=== PATIENT | male | born 1935 | race Caucasian/White ===

== ENCOUNTER 2016-05-31 06:04 | Day surgery (SDC) | payer MEDICARE, BC ==
[~2016-05-31] VITALS: Ht 172.7 cm; Wt 79.4 kg
[~2016-05-31 06:04] MED LIST: ASPIRIN81 MG PO; BACTRIM DS1 TAB PO; BENICAR HCT1 TA1 OR; CARB/LEVO1 TA4 PO; HYDROCO/APAP1 T10 OR; IRON18 M1 PO; KEFLEX500 MG OR; LORADAMED10 MG PO; MELATONIN10 M3 PO; MOMETASONE0.12 EX; MULTI COMPLETE PO; NEURONTIN100 MG PO; NEXIUM40 M1 PO; OXYCOD/APAP1 TA4 PO; PYRIDIUM200 MG OR; TRAZODONE50 MG PO
[2016-05-31 07:53] VITALS: BP 113/69
== END 2016-05-31 08:10 | disposition home or self-care (01) ==
LOC: ENDO 06:04 → ORM 09:15
PROVIDERS: ATTEND Surgery
PROC: 0DB68ZX Excision of Stomach, Via Natural or Artificial Opening Endoscopic, Diagnostic (ICD-10-PCS; principal; 2016-05-31)
DX: R13.10 Dysphagia, unspecified (principal); K31.7 Polyp of stomach and duodenum; K29.50 Unspecified chronic gastritis without bleeding; I10 Essential (primary) hypertension; K21.9 Gastro-esophageal reflux disease without esophagitis; E78.5 Hyperlipidemia, unspecified; M19.90 Unspecified osteoarthritis, unspecified site

== ENCOUNTER 2019-01-06 13:50 | Observation (INO) | payer MEDICARE ==
[~2019-01-06] VITALS: Ht 172.7 cm; Wt 79.0 kg
[2019-01-06 14:05] VITALS: BP 111/53
--- NOTE | 2019-01-06 14:10 | NUR ---
PT ARRIVED TO MED/SURG ROOM 271 IN STABLE CONDITION VIA WHEELCHAIR ACCOMPANIED BY SPOUSE AND VOLUNTEER;PT AMBULATED WITH A WEAK GAIT TO STANDING SCALE AND BEDSIDE;WT AND VS OBTAINED BY SEEMA MONTEJO;PT A&O X4, ORIENTED TO ROOM AND CALL LIGHT SYSTEM;PT REPORTS HAVING "FEVER AND CHILLS ALL NIGHT" AND WENT TO SEE PCP WHO SENT HIM DIRECTLY HERE;ASSESSMENT COMPLETED;PT DENIES ANY CURRENT PAIN OR DISCOMFORTS,PAIN SCALE AND REPORTING EDUCATED;RESPIRATIONS EVEN AND UNLABORED ON RA,CLEAR LUNG SOUNDS NOTED;PT REPORTS PRODUCTIVE COUGH "YELLOW AND THICK", COUGH NOT VISUALIZED BY THIS WRITTER;PT EDUCATED ON THE NEED FOR A SPUTUM CULTURE;ABDOMEN SOFT ON PALPATION AND ACTIVE IN ALL 4 QUADRANTS, LAST BM 01/05/19;WEAK PEDAL PULSES;SKIN INTACT;#22G STARTED TO RAC ON 1ST ATTEMPT BY THIS WRITTER AND 1/2 NS STARTED @ 80ML/HR;TELE MONITORING PLACED ON PT;FALL AND ALLERGY BANDS APPPLIED;PT NOTED TO BE FORGETFUL AT TIMES, BED ALARM ACTIVATED;FRESH WATER PROVIDED;PT DENIES ANY ADDITIONAL NEEDS AND IS ENCOURAGED TO CALL FOR ASSISTANCE IF NEEDED;CALL LIGHT IN REACH;WILL CONTINUE TO MONITOR
--- NOTE | 2019-01-06 14:50 | NUR ---
LAB AT BEDSIDE
[2019-01-06 15:00] LABS: HEMATOCRIT 30.7 % (39.0-50.0); HEMOGLOBIN 10.2 g/dl (14.0-18.0); IMMATURE GRANULOCYTES 0.5 % (0.0-5.0); MEAN CORPUSCULAR HGB 35.5 pG CALC (26.0-32.0); MEAN CORPUSCULAR HGB CONC 33.2 g/L CALC (32.0-36.0); NEUT# 6.94 thou/uL (1.82-7.42); RED BLOOD COUNT 2.87 mill/uL (4.70-6.10); RED CELL DISTRI WIDTH 13.2 % (11.5-15.5)
[2019-01-06 15:24] LABS: ALKALINE PHOSPHATASE 81 u/l (38-126); ANION GAP 12 (6-22 (CALC)); BUN 17 mg/dL (8-23); BUN/CREATININE RATIO 18 (12-20 (CALC)); CARBON DIOXIDE 28 mmol/l (22-30); CHLORIDE 99 mmol/l (95-108); GFR > 60 ML/MIN (>=60 (CALC)); GFR FOR AFR.AMER. > 60 ML/MIN (>=60 (CALC)); POTASSIUM 4.1 mmol/l (3.5-5.1); SGOT/AST 25 u/l (19-48); SODIUM 135 mmol/l (137-146); TOTAL PROTEIN 7.7 g/dL (6.3-8.2)
[2019-01-06 15:30] LABS: BILIRUBIN, TOTAL 3.2 mg/dL (0.0-1.4)
--- NOTE | 2019-01-06 15:54 | NUR ---
PT TRANSPORTED TO [facility] IN STABLE CONDITION VIA WHEELCHAIR ACCOMPANIED BY VOLUNTEER.
[2019-01-06] MEDS ORDERED: LOSARTAN POTAS100 MG PO ×2 (16:10)
[2019-01-06] MEDS ORDERED: MELOXICAM15 MG PO (16:10)
--- NOTE | 2019-01-06 16:10 | NUR ---
PT TRANSPORTED BACK TO MED/SURG ROOM 271 IN STABLE CONDITION VIA WHEELCHAIR ACCOMPANIED BY MISSY VARGAS
[2019-01-06] MEDS ORDERED: MEMANTINE HCL5 MG PO (16:11)
[2019-01-06] MEDS ORDERED: LORTAB 5/3255 MG PO (16:26)
--- NOTE | 2019-01-06 16:30 | NUR ---
PT RESTING IN SEMI FOWLERS POSITION WITH VISITORS AT BEDSIDE;RESPIRATIONS EVEN AND UNLABORED ON RA;PT DENIES ANY CURRENT PAIN OR DISCOMFORTS;TELE MONITORING IN PLACE;IV FLUIDS INFUSING TO RAC WITH EASE;PT ENCOURAGED TO CALL FOR ASSISTANCE IF NEEDED;FALL PRECAUTIONS IN PLACE WITH BED IN THE LOWEST POSITION AND BED ALARM ON FOR SAFETY;CALL LIGHT IN REACH;WILL CONTINUE TO MONITOR
--- NOTE | 2019-01-06 17:45 | NUR ---
PT RESTING IN BED AFTER VOIDING 250CC OF CLEAR/DARK YELLOW URINE;BLADDER SCAN PROVIDED AT THIS TIME RESULTING IN 012ML POST VOID RESIDUAL;WILL CONTINUE TO MONITOR
--- NOTE | 2019-01-06 19:00 | NUR ---
RECEIVED REPORT FROM NURSE QUINTON, PATIENT RESTING IN BED EYES CLOSED WITH EVEN UNLABORED BREATHING CALL LIGHT AT REACH.
[2019-01-06 19:20] VITALS: BP 139/71
[2019-01-06 19:42] LABS: URINE BILIRUBIN - DIPSTICK NEGATIVE (NEGATIVE); URINE BLOOD DIPSTICK TRACE-LYSED (NEGATIVE); URINE COLOR YELLOW; URINE GLUCOSE - DIPSTICK NEGATIVE (NEGATIVE); URINE KETONE NEGATIVE (NEGATIVE); URINE LEUK ESTERASE NEGATIVE (Negative); URINE NITRITE - DIPSTICK NEGATIVE (Negative); URINE PH 5.5 (4.5-8.0); URINE PROTEIN - DIPSTICK NEGATIVE (NEG-TRACE)
[2019-01-06 19:44] LABS: URINE CLARITY CLEAR
--- NOTE | 2019-01-06 20:43 | NUR ---
RECEIVED A PHONE CALL FROM ED, PATIENTS HR 40'S ASSESSED PATIENT CURRENTLY SLEEPING WITH EYES CLOSED, APICAL HEART RATE CHECHED @ 54 BPM MANUALLY WILL CONTINUE MONITORING.
--- NOTE | 2019-01-06 21:31 | NUR ---
RECEIVED A PHONECALL FROM ED, PATIENTS HR ON SB 37-38, NOT SUSTAINED, PATIENT IS CURRENTLY RESTING, DENIES CHEST PAIN AT THIS TIME.
--- NOTE | 2019-01-06 21:32 | NUR ---
EKG ORDERED AT THIS TIME.
[2019-01-06 23:31] VITALS: BP 129/60
--- NOTE | 2019-01-07 01:07 | NUR ---
PATIENT APPEARS TO BED SLEEPING WITH EYES CLOSED, WITH EVEN UNLABORED BREATHING CALL LIGHT AT REACH.
--- NOTE | 2019-01-07 03:09 | NUR ---
BLADDER SCAN DONE POST VOID AT THIS TIME, 227 ML. SPUTUM SPECIMEN COLLECTED SUBMITTED TO LAB.
--- NOTE | 2019-01-07 04:31 | NUR ---
PATIENT RESTING IN BED WITH EYES CLOSED, REMAINS ON TELE, WITH EVEN UNLABORED BREATHING.
[2019-01-07 04:44] VITALS: BP 133/60
--- NOTE | 2019-01-07 05:32 | NUR ---
PATIENT C/O OF PAIN PS 6/10 ON LEFT SHOULDER PRN PERCOCET GIVEN, PATIENT REFUSED ICE PACK AT THIS TIME, WILL REEVALUATE PAIN, AND PATIENT DEMONSTRATED THE USED OF SPIROMETER.
--- NOTE | 2019-01-07 07:00 | NUR ---
REPORT RECEIVED FROM AMAURI HAYDEN;PT APPEARS TO BE SLEEPING IN SUPINE POSITION;NO S/S OF DISTRESS NOTED;RESPIRATIONS APPEAR EVEN AND UNLABORED ON RA;IV FLUIDS INFUSING TO RAC WITH EASE;FALL PRECAUTIONS NOTED WITH BED IN THE LOWEST POSITION AND BED ALARM ON FOR SAFETY;CALL LIGHT IN REACH;WILL CONTINUE TO MONITOR
[2019-01-07 09:28] VITALS: BP 143/72
--- NOTE | 2019-01-07 09:30 | NUR ---
PT OOB RESTING IN RECLINER AFTER SHOWER,A&O X3;VS OBTAINED AND ASSESSMENT COMPLETED;PT DENIES ANY CURRENT PAIN OR DISCOMFORTS,PAIN SCALE AND REPORTING EDUCATED;RESPIRATIONS EVEN AND UNLABORED ON RA,CLEAR LUNG SOUNDS;ABDOMEN SOFT ON PALPATION AND ACTIVE IN ALL 4 QUADRANTS;WEAK PEDAL PULSES;SKIN INTACT;TELE MONITORING IN PLACE;#22G TO RAC INFUSING 1/2 NS @ 80ML/HR,SITE APPEARS HEALTHY;PT DENIES ANY ADDITIONAL NEEDS AT THIS TIME AND IS ENCOURAGED TO CALL FOR ASSISTANCE IF NEEDED;FALL PRECAUTIONS IN PLACE WITH CALL LIGHT IN REACH;WILL CONTINUE TO MONITOR
--- NOTE | 2019-01-07 10:00 | NUR ---
PT RESTING IN RECLINER;ER POWER MACHINE OPERATOR REPORTS AFLUTTER ON TELEMETRY;PT ASYMPTOMATIC;KYLAH CHO NOTIFIED AND ORDER FOR STAT EKG OBTAINED;WILL CONTINUE TO MONITOR
--- NOTE | 2019-01-07 10:10 | NUR ---
JEFF RT AT BEDSIDE PERFORMING EKG.
--- NOTE | 2019-01-07 10:20 | NUR ---
EKG OBTAINED RESULTING IN SINUS BHAVANA WITH 1ST DEGREE AVB RATE OF 56;RAMON DIAZANRP NOTIFIED AND NO NEW ORDERS RECEIVED AT THIS TIME.
--- NOTE | 2019-01-07 10:50 | NUR ---
AND RAMON DIAZ,ANRP AT BEDSIDE DISCUSSING POC WITH PT AND SPOUSE.
[2019-01-07 11:00] VITALS: BP 158/83
--- NOTE | 2019-01-07 11:27 | NUR ---
[facility] WORKING WITH PATIENT.
--- NOTE | 2019-01-07 11:55 | NUR ---
PT OOB RESTING IN RECLINER WITH SPOUSE AT BEDSIDE;PT DENIES ANY CURRENT PAIN OR DISCOMFORTS;RESPIRATIONS EVEN AND UNLABORED ON RA;EYE DROPS ADMINISTERED AT THIS TIME;TELE MONITORING IN PLACE;IV FLUIDS CONTINUE TO INFUSE TO RAC WITH EASE;PT AND SPOUSE DENY ANY ADDITIONAL NEEDS;ENCOURAGED TO CALL FOR ASSISTANCE IF NEEDED;CALL LIGHT IN REACH;WILL CONTINUE TO MONITOR
--- NOTE | 2019-01-07 12:03 | NUR ---
Pt is an 83 y.o. male referred for a Bedside Swallow Evaluation d/t concerns of aspiration. Pt presents w/SOB, cough, fever, and new dx of PNA. Pt has PMHX of Parkinson's Disease and reports pt completed [address] in [place]. Pt presents with moderate tremors (right arm/leg) to gross motor extremeties and low vocal volume. Most recent CXR indicates right upper lobe PNA. Oral Motor Exam=WFL. Pt presents with intermittent throat-clearing and wet vocal quality with thins via straw and cup. Right head turn eliminated all overt s/s of aspiration. No deficits observed with solids at this time. SPA COORDINATOR recommending continued regular texture diet, thin liquids (straw or cup=ok) with head turn to the right with ALL LIQUID boluses. DIET: Regular solids, thin liquids-with head turn to right with all liquids AMPAC Score: 12 at this time; =primary caregiver.
[2019-01-07 15:05] VITALS: BP 168/76
--- NOTE | 2019-01-07 15:30 | NUR ---
PT RESTING IN SEMI FOWLERS POSITION WITH FAMILY AT BEDSIDE;RESPIRATIONS EVEN AND UNLABORED ON RA;PT DENIES ANY CURRENT PAIN OR DISCOMFORTS;TELE MONITORING IN PLACE; IV FLUIDS INFUSING TO RAC WITH EASE;PT ENCOURAGED TO CALL FOR ASSISTANCE IF NEEDED;FALL PRECAUTIONS REMAIN IN PLACE WITH CALL LIGHT IN REACH;WILL CONTINUE TO MONITOR
[2019-01-07 16:00] VITALS: BP 169/71
--- NOTE | 2019-01-07 16:50 | NUR ---
PT AMBULATING THE HALLWAY WITH A STEADY GAIT AND PHYSICAL THERAPY.
[2019-01-07 19:27] VITALS: BP 146/74
--- NOTE | 2019-01-07 19:30 | NUR ---
PATIENT RESTING IN BED AT THIS TIME WITH VISITING AT BEDSIDE. PATIENT IS AWAKE ALERT AND ORIENTED3. TELE MONITOR IN PLACE. PATIENT WITH IV SITE TO [facility] WITH IVF NS PATENT AND INFUSING AT 80CC/HR. SITE APPEARS HEALTHY AT THIS TIME. SAFETY PRECAUTIONS REINFORED. CALL LIGHT IN REACH. WILL CONT TO MONITOR.
--- NOTE | 2019-01-07 21:00 | NUR ---
PATIENT WENT TO CT VIA WHEELCHAIR AND BACK. ASSISTED BACK TO BED. IVF INFUSING AT 80CC/HR VIA RAC SITE. TELE MONITOR IN PLACE. CALL LIGHT IN REACH, WILL CONT TO MONITOR.
[2019-01-08] VITALS (10 sets, daily range): BP systolic 143–189; BP diastolic 60–91
--- NOTE | 2019-01-08 00:15 | NUR ---
PATIENT RESTING IN BED IN NO ACUTE DISTRESS. BP-178/60, HR-58. SPOJKE WITH DR. CEE IN ER AND ORDER RECIEVED FOR APRESOLINE 10MG IVPX 1 DOSE. WILL GIVEN SOON PROFILED ON EMAR. WILL CONT TO MONITOR.
--- NOTE | 2019-01-08 00:34 | NUR ---
PATIENT RESTING IN BED-BP-189/81, HR-59. MEDICATED WITH APRESOLINE 10MG IVP ORDERED. PATIENT STATES THAT HE NEEDS TO VOID AGAIN-WILL ASSIST. WILL CONT TO MONITOR.
--- NOTE | 2019-01-08 01:07 | NUR ---
BP IS STILL HIGH EVEN AFTER RECIEVING APRESOLINE 10MG IVP. BP-182/74, HR-70. PATIENT IS QUITE ANXIOUS. MEDICATED FOR SLEEP WITH SONATA 5MG PO. DR. CEE ORDERED ADDITIONAL APRESOLINE 10MG IVP AND IT WAS GIVEN. PATIENT VOIDED 225CC OF JUANCHO URINE IN URINAL. RESTING IN BED-WILL CONT TO [facility].
--- NOTE | 2019-01-08 01:30 | NUR ---
BED ALARM GOING OFF AND PATIENT FOUND TRYING TO GET OOB-STATES THAT HE HAS TO URINATE AGAIN. INSISTED ON GOING INTO THE BR TO VOID. PATIENT IS UNSTEADY ON FEET. VOIDED 200 OC YELLOW URINE AND ASSISTED BACK TO BED. PATIENT HAVING SEVERE TREMORS THEA TO RIGHT HAND AND ARM. SAFETY PRECAUTIONS REINFORCED. CALL LIGHT IN REACH. WILL CONT TO MONITOR.
--- NOTE | 2019-01-08 02:11 | NUR ---
PATIENT RESTING IN BED-BP RECHECKED-143/61, HR-58 AT THIS TIME. BED ALARM IN PLACE FOR PATIENT SAFETY. IVF 1/2NS PATENT AND INFUSING VIA RIGHT AC SITE. SITE REMAINS HEALTHY AT THIS TIME. TELE MONITOR IN PLACE. CALL LIGHT IN REACH. WILL CONT TO MONITOR.
[2019-01-08 04:55] LABS: HEMATOCRIT 32.9 % (39.0-50.0); HEMOGLOBIN 10.9 g/dl (14.0-18.0); IMMATURE GRANULOCYTES 0.4 % (0.0-5.0); MEAN CELL VOLUME 105.8 fL CALC (80.0-100.0); MEAN CORPUSCULAR HGB CONC 33.1 g/L CALC (32.0-36.0); NEUT# 5.86 thou/uL (1.82-7.42); RED BLOOD COUNT 3.11 mill/uL (4.70-6.10)
--- NOTE | 2019-01-08 05:06 | NUR ---
PATIENT RESTING IN BED-PATIENT HAS BEEN UP AND DOWN FREQUENTLY THROUGHOUT THE NIGHT TO VOID. PATIENT INSISTS ON GOING INTO THE BR EACH TIME TO VOID. USUALLY VOIDING IN AMT OF 200CC OR GREATER. URINE IN NOW CLEAR YELLOW. IVF PATENT AND INFUSING AT 80CC/HR, SITE TO RIGHT AC REMAINS HEALTHY. TELE MONITOR IN PLACE. BP IS DOWN FROM EARLIER-150/76, HR-81. PATIENT CONT WITH RIGHT SIDED TREMORS. LEFT EYE REMAINS RED WITH SOME DRAINAGE NOTED. BED ALARM IN PLACE FOR PATIENT SAFETY. CALL LIGHT IN REACH. WILL CONT TO MONITOR.
[2019-01-08 05:14] LABS: ANION GAP 11 (6-22 (CALC)); BUN 13 mg/dL (8-23); BUN/CREATININE RATIO 20 (12-20 (CALC)); CARBON DIOXIDE 26 mmol/l (22-30); CHLORIDE 104 mmol/l (95-108); CREATININE 0.6 mg/dL (0.7-1.3); GFR > 60 ML/MIN (>=60 (CALC)); GFR FOR AFR.AMER. > 60 ML/MIN (>=60 (CALC)); POTASSIUM 3.9 mmol/l (3.5-5.1); SODIUM 138 mmol/l (137-146)
--- NOTE | 2019-01-08 07:00 | NUR ---
REPORT RECEIVED FROM AMAURI JOSE;PT IN RESTROOM AT THIS TIME;INTRODUCED SELF TO PT AND POC DISCUSSED;RESPIRATIONS EVEN AND UNLABORED ON RA;PT DENIES ANY CURRENT PAIN OR NEEDS;IV INFUSING TO RAC PER ORDER AND TELE MONITORING IN PLACE;ENCOURAGED TO CALL FOR ASSISTANCE IF NEEDED;CALL LIGHT IN REACH;WILL CONTINUE TO MONITOR
--- NOTE | 2019-01-08 09:00 | NUR ---
PT OOB RESTING IN RECLINER, A&O X3;VS OBTAINED AND ASSESSMENT COMPLETED;PT DENIES ANY CURRENT PAIN OR DISCOMFORTS,PAIN SCALE AND REPORTING EDUCATED;RESPIRATIONS EVEN AND UNLABORED ON RA,CLEAR LUNG SOUNDS;NON-PRODUCTIVE COUGH NOTED;ABDOMEN SOFT ON PALPATION AND ACTIVE IN ALL 4 QUADRANTS;WEAK PEDAL PULSES;SKIN INTACT;TELE MONITORING IN PLACE;#22G TO RAC INFUSING 1/2 NS @ 80ML/HR,SITE APPEARS HEALTHY;PT DENIES ANY ADDITIONAL NEEDS AT THIS TIME AND IS ENCOURAGED TO CALL FOR ASSISTANCE IF NEEDED;FALL PRECAUTIONS IN PLACE WITH CALL LIGHT IN REACH;WILL CONTINUE TO MONITOR
--- NOTE | 2019-01-08 11:33 | NUR ---
PHYSICAL THERAPY AMBULATING PATIENT IN THE HALLWAY.
--- NOTE | 2019-01-08 11:44 | NUR ---
AND RAMON DIAZ,ANRP AT BEDSIDE
--- NOTE | 2019-01-08 11:45 | NUR ---
PT OOB RESTING IN RECLINER WITH ,PHYSICAL THERAPY, AND SPOUSE AT BEDSIDE;RESPIRATIONS EVEN AND UNLABORED ON RA;PT DENIES ANY CURRENT PAIN OR NEEDS;TELE MONITORING IN PLACE;EYE DROPS ADMINISTER TO LEFT EYE;PT ENCOURAGED TO CALL FOR ASSISTANCE IF NEEDED;FALL PRECAUTIONS IN PLACE;WILL CONTINUE TO MONITOR
--- NOTE | 2019-01-08 11:56 | NUR ---
PERFORMED GAIT TRAINING WITHOUT ASSISTIVE DEVICE, 120 FEET X 2, CGA FOR SAFETY. VERBAL CUES TO ASSUME AND MAINTAIN GOOD POSTURE, INCREASE STEP LENGTH AND STRIDE, AND CONTROL GAIT SPEED TO INCREASE SAFETY AND STABILITY. STS FROM BED AND CHAIR. SEATED B LE STRENGTHENING EXERCISES DONE X 10 REPS: KNEE RAISES, KNEE EXTENSION, HIP ABDUCTION, BALL SQUEEZE BETWEEN THE KNEES, HEEL-TOE RAISES, AND KNEE FLEXION. AMPAC = 19
--- NOTE | 2019-01-08 15:25 | NUR ---
PT APPEARS TO BE SLEEPING IN SEMI FOWLERS POSITION,WAKES EASILY TO VERBAL STIMULI;RESPIRATIONS EVEN AND UNLABORED ON RA;PT DENIES ANY CURRENT PAIN OR DISCOMFORTS;TELE MONITORING IN PLACE;IV ABX ADMINISTERED VIA RAC;PT DENIES ANY ADDITIONAL NEEDS AND IS ENCOURAGED TO CALL FOR ASSISTANCE IF NEEDED;FALL PRECAUTIONS REMAIN IN PLACE WITH CALL LIGHT IN REACH;WILL CONTINUE TO MONITOR
--- NOTE | 2019-01-08 20:00 | NUR ---
PATIENT RESTING IN BED-JUST FINISHING DINNER ATE FAIR-50%. PATIENT IS AWAKE ALERT AND ORIENTEDX3. FORGETFUL. TELE MONITOR IN PLACE. IV SITE TO RIGHT AC INTACT AND APPEARS HEALTHY AT THIS TIME. LEFT EYE REMAINS RED AND SWOLLEN WITH SMALL AMT OF DRAINAGE NOTED. SAFETY PRECAUTIONS REINFORCED. CALL LIGHT IN REACH. WILL CONT TO MONITOR.
--- NOTE | 2019-01-09 00:19 | NUR ---
PATIENT RESTING IN BED WITH HOB SLIGHTLY ELEVATED AND EYES CLOSED-APPEARS SLEEPING AT THIS TIME. TELE MONITOR IN PLACE. SALINE LOCK TO RIGHT AC INTACT. RESP ARE EVEN AND UNLABORED. CALL LIGHT IN REACH. WILL CONT TO MONITOR.
--- NOTE | 2019-01-09 04:36 | NUR ---
PATIENT RESTING IN BED-APPEARS SLEEPING AT THIS TIME WITH EYES CLOSED. HOB SLIGHTLY ELEVATED. TELE MONITOR IN PLACE. CALL LIGHT IN REACH. WILL CONT TO MONITOR.
[2019-01-09 04:50] VITALS: BP 160/66
[2019-01-09 04:50] LABS: HEMATOCRIT 29.7 % (39.0-50.0); HEMOGLOBIN 10.1 g/dl (14.0-18.0); IMMATURE GRANULOCYTES 0.2 % (0.0-5.0); MEAN CELL VOLUME 104.9 fL CALC (80.0-100.0); MEAN CORPUSCULAR HGB 35.7 pG CALC (26.0-32.0); NEUT# 2.33 thou/uL (1.82-7.42); RED BLOOD COUNT 2.83 mill/uL (4.70-6.10)
[2019-01-09 07:21] VITALS: BP 163/68
--- NOTE | 2019-01-09 07:21 | NUR ---
PT A/O X3. RESP EVEN AND UNLABORED. LUNGS DIMINSHED. TELE IN PLACE. NONPRODUCTIVE COUGH AT THIS TIME. BOWEL SOUNDS ACTIVE X4. STRONG RADIAL AND PEDAL PULSES. #22 RAC SL. FLUSHED AND PATENT. SITE APPEARS HEALTHY. SKIN INTACT. PT DENIES ANY PAIN OR NEEDS. POC DISCUSSED. SAFETY PRECAUTIONS IN PLACE. CALL LIGHT IN REACH. WILL CONTINUE TO MONITOR.
--- NOTE | 2019-01-09 07:24 | NUR ---
PT REPORT RECIEVED FROM AMAURI JOSE. PT LYING IN BED. NO S/S OF DISTRESS. CALL LIGHT IN REACH. WILL CONTINUE TO MONITOR.
[2019-01-09 08:57] VITALS: BP 142/60
[2019-01-09 10:51] VITALS: BP 143/75
[2019-01-09] MEDS ORDERED: LEVAQUIN750 MG PO (11:12)
[2019-01-09] MEDS ORDERED: VIGAMOX OD (11:15)
--- NOTE | 2019-01-09 11:31 | NUR ---
PT SITTING IN RECLINER. NO C/O PAIN OR NEEDS. SPOUSE AT BEDSIDE. CALL LIGHT IN REACH. WILL CONTINUE TO MONITOR.
--- NOTE | 2019-01-09 12:35 | NUR ---
D/C INSTRUCTIONS DISCUSSED W/ PT AND . BOTH VERBALIZE UNDERSTANDING. IV REMOVED; CATHETER INTACT. TELE REMOVED. PT GETTING DRESSED W/ ASSISTANCE OF SPOUSE AT THIS TIME.
--- NOTE | 2019-01-09 13:02 | NUR ---
Discharge instructions given. Patient verbalizes understanding of same. Discharged in stable condition via Wheelchair to Home with spouse. All belongings sent with pt.
== END 2019-01-09 13:02 | disposition home or self-care (01) ==
LOC: MS2 13:50
PROVIDERS: Nurse Practitioner Family; ADMIT Internal Medicine; ATTEND Internal Medicine
DX: J15.1 Pneumonia due to Pseudomonas (principal); I10 Essential (primary) hypertension; G20 Parkinson's disease; F02.80 Dementia in other diseases classified elsewhere, unspecified severity, without behavioral disturbance, psychotic disturbance, mood disturbance, and anxiety; M19.90 Unspecified osteoarthritis, unspecified site; K21.9 Gastro-esophageal reflux disease without esophagitis; E78.5 Hyperlipidemia, unspecified; R13.10 Dysphagia, unspecified; H10.9 Unspecified conjunctivitis; R35.0 Frequency of micturition; R39.15 Urgency of urination; Z87.891 Personal history of nicotine dependence
CPT/HCPCS: Q9967

== ENCOUNTER 2020-11-21 09:54 | Observation (INO) | payer MEDICARE ==
[~2020-11-21] VITALS: Ht 175.3 cm; Wt 77.9 kg
[~2020-11-21 09:54] MED LIST changes: +LEVAQUIN750 MG PO; +LORTAB 5/3255 MG PO; +LOSARTAN POTAS100 MG PO; +MELOXICAM15 MG PO; +MEMANTINE HCL5 MG PO; +VIGAMOX OD
--- NOTE | 2020-11-21 10:10 | NUR ---
PATIENT TO ROOM VIA WHEELCHAIR AND PHYSICIAN NOTIFIED OF PATIENT STATUS
--- NOTE | 2020-11-21 10:39 | NUR ---
IV INTAITED AND BLOOD OBTAINED. PT TOLERATED WELL. DISCUSSED WITH PT AND .
[2020-11-21 10:46] LABS: HEMATOCRIT 28.7 % (39.0-50.0); HEMOGLOBIN 9.1 g/dl (14.0-18.0); IMMATURE GRANULOCYTES 0.2 % (0.0-5.0); MEAN CELL VOLUME 117.1 fL CALC (80.0-100.0); MEAN CORPUSCULAR HGB 37.1 pG CALC (26.0-32.0); MEAN CORPUSCULAR HGB CONC 31.7 g/dL CAL (32.0-36.0); NEUT# 2.04 thou/uL (1.82-7.42); RED BLOOD COUNT 2.45 mill/uL (4.70-6.10)
[2020-11-21 10:59] LABS: ANION GAP 10 (6-22 (CALC)); BUN 16 mg/dL (8-23); BUN/CREATININE RATIO 19 (12-20 (CALC)); CARBON DIOXIDE 27 mmol/l (22-30); CHLORIDE 105 mmol/l (95-108); CREATININE 0.9 mg/dL (0.7-1.3); GFR > 60 ML/MIN (>=60 (CALC)); GFR FOR AFR.AMER. > 60 ML/MIN (>=60 (CALC)); POTASSIUM 4.2 mmol/l (3.5-5.1); SODIUM 138 mmol/l (137-146)
--- NOTE | 2020-11-21 11:35 | NUR ---
PATIENT DENIES ANY PAIN AT THIS TIME AND IS RESTING COMFORTABLY. VSS.
[2020-11-21] MEDS ORDERED: IRON28 M1 PO (11:52)
[2020-11-21] MEDS ORDERED: B121000 MC1 PO (11:53)
[2020-11-21] MEDS ORDERED: GABAPENTIN100 MG PO (11:53)
[2020-11-21] MEDS ORDERED: ALLERGY RELIEF 25 MG PO (11:54)
[2020-11-21] MEDS ORDERED: SINGULAIR10 MG PO (11:55)
[2020-11-21] MEDS ORDERED: MELOXICAM7.5 MG PO (11:55)
[2020-11-21] MEDS ORDERED: ZOLPIDEM5 M1 PO (11:56)
[2020-11-21] MEDS ORDERED: MOMETASONE0.1 % (11:59)
[2020-11-21] MEDS ORDERED: AZELASTINE HYD0.15 % (12:00)
--- NOTE | 2020-11-21 12:32 | NUR ---
MD AT BEDSIDE TO DISCUSS RESULTS AND PLAN OF CARE. CALL KIM WITHIN REACH.
--- NOTE | 2020-11-21 13:15 | NUR ---
PATIENT AWARE OF PENDING RESULTS AND WAIT TIME. REMAINS AT BEDSIDE. CALL KIM WITHIN REACH.
--- NOTE | 2020-11-21 14:00 | NUR ---
PATIENT AWARE OF PLAN FOR ADMISSION AND WAIT TIME. HE IS UP IN BEDSIDE CHAIR AWAITING ROOM ASSIGNMENT.
--- NOTE | 2020-11-21 14:55 | NUR ---
REPORT CALLED TO AMAURI VILLARREAL.
--- NOTE | 2020-11-21 15:15 | NUR ---
Admission Note Report Given to: Transported by: X Wheelchair Stretcher Transported with: X Nurse Transporter X Patent IV O2 X Light Coil Winder Location: ICU X MS2 PT TO ROOM 280 WITH TELE MONITOR IN STABLE CONDITION.
[2020-11-21 15:19] VITALS: BP 152/82
--- NOTE | 2020-11-21 15:19 | NUR ---
PATIENT CAME FROM ER VIA WHEELCHAIR. AMBULATED TO BED. VS OBTAIN BY NURSE. CALL LIGHT IN REACH.
--- NOTE | 2020-11-21 15:39 | NUR ---
ASSESSMENT DONE. PATIENT IS ALERT AND OREINT X3. PATIENT DENIES PAIN. TELE IN PLACE. PO FLUIDS PROVIDED. PATIENT STATED HE HAS PARKINSON AND HAS TREMORS. RESPS EVEN AND UNLABORED. PATIENT STATED HE HAS HEALING STYE RIGHT EYE. PATIENT DENIES NEEDS. SAFETY PRECAUTIONS REINFORCED AND CALL LIGHT IN REACH.
[2020-11-21 19:00] VITALS: BP 161/74
--- NOTE | 2020-11-21 19:00 | NUR ---
REPORT RECEIVED FROM Mesha GIRARD RN, CARE OF PT ASSUMED AT THIS TIME.
--- NOTE | 2020-11-21 19:30 | NUR ---
PT ASSISTED TO BATHROOM BY Kelli SCHNEIDER CNA. PT WISHES TO CHANGE GOWN WHILE UP. NEW GOWN PROVIDED BY Kelli SCHNEIDER CNA. PT ASSISTED BACK TO BED BY Kelli SCHNEIDER CNA.
--- NOTE | 2020-11-21 21:15 | NUR ---
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 EKG ORDERED FOR RYTHM CHANGE. PT ASYMPTOMATIC. WHEN QUESTIONED ABOUT HX OF ARRYTHMIAS HE RECALLS WHEN YOUNG BEING UNABLE TO PARTICIPATE IN AN ACTIVITY DUE TO A CARDIAC RELATED ABNORMALITY. EXPLAINED TO PT ABOUT SUSPECTED RYTHM CHANGE AND NEED FOR EKG TO CONFIRM. PT VERBALIZES UNDERSTANDING AND IS AGREEABLE.
--- NOTE | 2020-11-21 22:03 | NUR ---
TROPONIN COLLECTED BY Joanne GIRARD VISUAL MERCHANDISING COORDINATOR.
--- NOTE | 2020-11-21 22:12 | NUR ---
PT ASSISTED TO BATHROOM AND BACK TO BED BY Kelli SCHNEIDER CNA. PT DECLINES TO USE URINAL.
--- NOTE | 2020-11-21 22:18 | NUR ---
Arlene SMITH MACHINE BILLER IN ROOM PERFORMING EKG.
--- NOTE | 2020-11-21 23:13 | NUR ---
TROPONIN 0.028. 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 RATE 65.
[2020-11-22 01:15] VITALS: BP 145/78
[2020-11-22 05:26] VITALS: BP 141/63
[2020-11-22 06:16] LABS: HEMATOCRIT 25.8 % (39.0-50.0); HEMOGLOBIN 8.3 g/dl (14.0-18.0); MEAN CELL VOLUME 117.3 fL CALC (80.0-100.0); MEAN CORPUSCULAR HGB 37.7 pG CALC (26.0-32.0); MEAN CORPUSCULAR HGB CONC 32.2 g/dL CAL (32.0-36.0); RED BLOOD COUNT 2.2 mill/uL (4.70-6.10); RED CELL DISTRI WIDTH 14.5 % (11.5-15.5)
[2020-11-22 06:53] LABS: ANION GAP 8 (6-22 (CALC)); BUN 17 mg/dL (8-23); BUN/CREATININE RATIO 22 (12-20 (CALC)); CALCULATED LDLCHOLESTEROL 76 mg/dL (62-129 (CALC)); CARBON DIOXIDE 29 mmol/l (22-30); CHLORIDE 105 mmol/l (95-108); CHOLESTEROL HDL RATIO 4.2 (<4.4 (CALC)); CREATININE 0.8 mg/dL (0.7-1.3); GFR > 60 ML/MIN (>=60 (CALC)); GFR FOR AFR.AMER. > 60 ML/MIN (>=60 (CALC)); HDL CHOLESTEROL 27 mg/dL (>=40); MAGNESIUM 1.9 mg/dL (1.6-2.3); POTASSIUM 3.9 mmol/l (3.5-5.1); SODIUM 138 mmol/l (137-146); TOTAL CHOLESTEROL 116 mg/dl (0-199); TOTAL TRIGLYCERIDES 63 mg/dl (30-149); VLDL CHOLESTROL 13 mg/dl (0-38 (CALC))
[2020-11-22 07:27] VITALS: BP 183/92
--- NOTE | 2020-11-22 08:05 | NUR ---
PATIENT IS SITTING IN THE RECLINER. HE STATED HE READY TO BE DC. NOTIFIED PATIENT WE ARE WATING FOR DOCTOR TO COME IN . PATIENT VERBALIZED UNDERSTANDING. ASSESSMENT DONE. TELE IN PLACE. PATIENT IS ALERT AND ORIENT X3. PATIENT STATED THAT PAIN MEDICATED HELPED WITH HIS RIGHT SHOULDER PAIN. RESPS EVEN AND UNLABORED. TELE IN PLACE. SUGAR COATING HAND SETUP PATIENT FOR BREAKFAST. PATIENT DENIES ANY OTHER NEEDS AT THIS TIME. CALL LIGHT IN REACH. NOTIFIED BASILIO LEWIS ABOUT PATIENT BP 183/92. ALSO THAT IN THE NIGHT HE HAD CHANGES ON HIS TELE RHYTHM. NO NEW ORDERS REICEVED AT THIS TIME.
[2020-11-22 09:22] VITALS: BP 184/80
--- NOTE | 2020-11-22 10:06 | NUR ---
PATIENT IS SITTING IN THE RECLINER. MEDICATED PATIENT WITH APRESOLINE FOR BP 184/80 SEE EMAR. PATIENT IS FORGETFUL AT TIMES. REORIENT PATIENT. PATIENT DENIES ANY NEEDS AT THIS TIME. CALL LIGHT IN REACH.
[2020-11-22 11:43] VITALS: BP 144/75
--- NOTE | 2020-11-22 12:00 | NUR ---
PATIENT IS SITTING IN RELCINER. IS SETUP FOR LUNCH AND PO FLUIDS PROVIDED. PATIENT DENIES ANY NEEDS AT THIS TIME. CALL LIGHT IN REACH.
[2020-11-22] MEDS ORDERED: ZITHROMAX250 MG PO (12:08)
[2020-11-22] MEDS ORDERED: OMNICEF300 MG PO (12:08)
--- NOTE | 2020-11-22 14:47 | NUR ---
Discharge instructions given. Patient verbalizes understanding of same. Discharged in stable condition via Wheelchair to Home with staff. All belongings sent with pt.
== END 2020-11-22 14:50 ==
LOC: ED 09:54 → ED-I 12:20 → ED 13:10 → MS2 13:11
PROVIDERS: Family Medicine; Nurse Practitioner; ADMIT Internal Medicine; ATTEND Internal Medicine
DX: J18.9 Pneumonia, unspecified organism (principal); I10 Essential (primary) hypertension; G20 Parkinson's disease; D64.9 Anemia, unspecified; E78.5 Hyperlipidemia, unspecified; K21.9 Gastro-esophageal reflux disease without esophagitis; M19.90 Unspecified osteoarthritis, unspecified site; Z87.891 Personal history of nicotine dependence; Z20.822 Contact with and (suspected) exposure to COVID-19
CPT/HCPCS: G0378; J1650

== ENCOUNTER 2021-01-06 15:51 | Emergency (ER) | payer MEDICARE ==
[~2021-01-06] VITALS: Ht 175.3 cm; Wt 74.0 kg
[~2021-01-06 15:51] MED LIST changes: +ALLERGY RELIEF 25 MG PO; +AZELASTINE HYD0.15 %; +B121000 MC1 PO; +GABAPENTIN100 MG PO; +IRON28 M1 PO; +MELOXICAM7.5 MG PO; +MOMETASONE0.1 %; +OMNICEF300 MG PO; +SINGULAIR10 MG PO; +ZITHROMAX250 MG PO; +ZOLPIDEM5 M1 PO
[2021-01-06] MEDS ORDERED: SERTRALINE25 MG PO (16:49)
[2021-01-06] MEDS ORDERED: GABAPENTIN100 MG PO (16:54)
[2021-01-06 17:18] LABS: HEMATOCRIT 28.9 % (39.0-50.0); HEMOGLOBIN 9.2 g/dl (14.0-18.0); IMMATURE GRANULOCYTES 0.2 % (0.0-5.0); MEAN CELL VOLUME 118.9 fL CALC (80.0-100.0); MEAN CORPUSCULAR HGB 37.9 pG CALC (26.0-32.0); MEAN CORPUSCULAR HGB CONC 31.8 g/dL CAL (32.0-36.0); NEUT# 1.3 thou/uL (1.82-7.42); RED BLOOD COUNT 2.43 mill/uL (4.70-6.10); RED CELL DISTRI WIDTH 15.5 % (11.5-15.5)
[2021-01-06 17:31] LABS: ALBUMIN 4.3 g/dL (3.2-5.0); ALKALINE PHOSPHATASE 88 u/l (38-126); ANION GAP 8 (6-22 (CALC)); BUN 18 mg/dL (8-23); BUN/CREATININE RATIO 21 (12-20 (CALC)); CARBON DIOXIDE 28 mmol/l (22-30); CHLORIDE 106 mmol/l (95-108); CREATININE 0.9 mg/dL (0.7-1.3); GFR > 60 ML/MIN (>=60 (CALC)); GFR FOR AFR.AMER. > 60 ML/MIN (>=60 (CALC)); POTASSIUM 4.3 mmol/l (3.5-5.1); SGOT/AST 29 u/l (19-48); SODIUM 138 mmol/l (137-146); TOTAL PROTEIN 9.7 g/dL (6.3-8.2)
[2021-01-06] MEDS ORDERED: NAPROXEN500 MG PO (20:37)
[2021-01-06 20:39] VITALS: BP 140/79
== END 2021-01-06 21:00 | disposition home or self-care (01) ==
LOC: ED 15:51
PROVIDERS: Family Medicine
DX: R09.1 Pleurisy (principal); G20 Parkinson's disease; F02.80 Dementia in other diseases classified elsewhere, unspecified severity, without behavioral disturbance, psychotic disturbance, mood disturbance, and anxiety; I10 Essential (primary) hypertension
CPT/HCPCS: Q9967